=== PATIENT | female | born 1995 | race Two or more races ===

== ENCOUNTER 2022-01-02 10:47 | Emergency (ER) | payer OTHER ==
[~2022-01-02] VITALS: Ht 160 cm; Wt 72.6 kg
[2022-01-02] MEDS ORDERED: DULCOLAX STOOL100 M1 PO (15:56)
== END 2022-01-02 16:17 | disposition home or self-care (01) ==
LOC: ER 10:47
DX: K59.00 Constipation, unspecified (principal); R09.81 Nasal congestion

== ENCOUNTER → 2022-12-09 | Outpatient (CLI) | payer OTHER ==
[~2022-12-09] MED LIST: DULCOLAX STOOL100 M1 PO
== END | disposition home or self-care (01) ==
LOC: SONOGRAMA 09:46
PROVIDERS: ATTEND Pathology Anatomic Pathology & Clinical Pathology
DX: D34 Benign neoplasm of thyroid gland (principal); E06.5 Other chronic thyroiditis; E04.9 Nontoxic goiter, unspecified; E04.2 Nontoxic multinodular goiter